=== PATIENT | female | born 1990 | race African-American/Black ===

== ENCOUNTER 2016-05-24 19:25 | Emergency (ER) | payer SELFPAY ==
[2016-05-24] MEDS ORDERED: TYLENOL 325 MG PO STA (20:29)
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
[2016-05-24] MEDS ORDERED: TYLENOL 325 MG ONE (20:40)
[2016-05-24 20:58] VITALS: PULSE 88
[2016-05-24] MEDS ORDERED: Adacel Vial IM ONE ×2 (21:23→21:27)
[2016-05-24 21:50] VITALS: BP 133/69; O2SAT 98
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
== END 2016-05-24 21:50 | disposition home or self-care (01) ==
LOC: ED 19:25
DX: S00.81XA Abrasion of other part of head, initial encounter (principal); S80.01XA Contusion of right knee, initial encounter; S80.211A Abrasion, right knee, initial encounter; V49.59XA Passenger injured in collision with other motor vehicles in traffic accident, initial encounter
CPT/HCPCS: 70450; 73562; 90471; 90715; 99283